=== PATIENT | male | born 1970 | race Two or more races ===

== ENCOUNTER 2017-09-20 11:46 | Emergency (ER) | payer OTHER ==
[~2017-09-20] VITALS: Ht 170.2 cm; Wt 137.4 kg
[~2017-09-20 11:46] MED LIST: CATAFLAM50 MG; FLEXERIL10 MG; LODINE XL500 MG PO; LOPRESSOR25 MG; MOTRIN800 MG PO; TOPROL XL25 M1; VASOTEC10 MG; VOLTAREN100 GM TP; ZESTRIL10 MG
== END 2017-09-20 16:30 | disposition home or self-care (01) ==
LOC: ER 11:46
DX: M54.5 Low back pain (principal); R20.2 Paresthesia of skin

== ENCOUNTER 2018-06-03 13:49 | Outpatient (CLI) | payer OTHER | END 2018-06-03 14:04 | disposition home or self-care (01) | LOC: SONOGRAMA 13:49 → MAMO-SONO 15:00 | DX: N43.2 Other hydrocele (principal) ==

== ENCOUNTER 2018-09-16 10:39 | Emergency (ER) | payer OTHER ==
[~2018-09-16] VITALS: Ht 170.2 cm; Wt 136.1 kg
[2018-09-16] MEDS ORDERED: PRINIVIL10 MG (11:05)
== END 2018-09-16 15:50 | disposition home or self-care (01) ==
LOC: ER 10:39
DX: R10.84 Generalized abdominal pain (principal)

== ENCOUNTER 2018-12-21 11:37 | Outpatient (CLI) | payer OTHER ==
[~2018-12-21 11:37] MED LIST changes: +PRINIVIL10 MG
== END 2018-12-21 11:44 | disposition home or self-care (01) ==
LOC: RAD 501 11:37
DX: I11.0 Hypertensive heart disease with heart failure (principal)

== ENCOUNTER 2019-01-05 05:45 | Day surgery (SDC) | payer OTHER ==
[~2019-01-05 05:45] MED LIST changes: +FORTAMET1000 MG PO; +LIPITOR PO
== END 2019-01-05 13:30 | disposition home or self-care (01) ==
LOC: CIR.AMB 05:45
DX: N43.1 Infected hydrocele (principal)

== ENCOUNTER 2019-02-03 11:26 | Outpatient (CLI) | payer OTHER | END 2019-02-03 11:35 | disposition home or self-care (01) | LOC: RAD 501 11:26 | DX: M25.551 Pain in right hip (principal); M25.552 Pain in left hip; M25.572 Pain in left ankle and joints of left foot ==